=== PATIENT | female | born 1965 | race Caucasian/White ===

== ENCOUNTER 2022-04-29 10:07 | Emergency (ER) | payer MEDICAID, OTHER ==
[2022-04-29] MEDS ORDERED: HYDROmorphone 1 MG/ML Syringe IM ONE (10:39)
== END 2022-04-29 12:22 | disposition home or self-care (01) ==
LOC: JD.ED 10:07
DX: S22.080A Wedge compression fracture of T11-T12 vertebra, initial encounter for closed fracture (principal); S32.010A Wedge compression fracture of first lumbar vertebra, initial encounter for closed fracture; F17.210 Nicotine dependence, cigarettes, uncomplicated; Z79.899 Other long term (current) drug therapy; W23.1XXA Caught, crushed, jammed, or pinched between stationary objects, initial encounter
CPT/HCPCS: 72100; 96372; 99283; J1170

== ENCOUNTER 2022-07-26 07:42 | Inpatient (IN) | payer MEDICAID ==
[2022-07-26] MEDS ORDERED: Sodium Chloride 0.9% 10 ML Syringe FLUSH PRN (08:02)
[2022-07-26] MEDS ORDERED: Albuterol/Ipratropium 3.0-0.5 MG/3 ML Neb Soln NEB ONE (08:03)
[2022-07-26] MEDS ORDERED: methylPREDNISolone Sodium Succinate 125 MG/2 ML SDV IVPUSH ONE (08:12)
[2022-07-26] MEDS ORDERED: Sodium Chloride 0.9% 1,000 ML IV SCH (08:15)
[2022-07-26] MEDS ORDERED: Acetaminophen 325 MG Tab PO ONE (08:17)
[2022-07-26 08:46] LABS: CORONAVIRUS COVID-19 NAA NEGATIVE (NEGATIVE)
[2022-07-26] MEDS ORDERED: Meropenem 1 GM in Sodium Chloride 0.9% 100 ML IV ONE (09:26)
[2022-07-26] MEDS ORDERED: Lactated Ringers 1,000 ML IV ONE (09:27)
[2022-07-26] MEDS ORDERED: HYDROmorphone 0.5 MG/0.5 ML Syringe IVPUSH ONE (09:41)
[2022-07-26] MEDS ORDERED: Sodium Chloride 0.9% 100 ML ONE (10:03)
[2022-07-26] MEDS ORDERED: Meropenem 1 GM SDV ONE (10:03)
[2022-07-26] MEDS ORDERED: Albuterol 6.7 GM Inhaler INH PRN (11:44)
[2022-07-26] MEDS ORDERED: Polyethylene Glycol 3350 Powder 17 GM Packet PO PRN (11:44)
[2022-07-26] MEDS ORDERED: Ondansetron 4 MG/2 ML SDV IV PRN (12:25)
[2022-07-26] MEDS ORDERED: Acetaminophen 325 MG Tab PO PRN (12:25)
[2022-07-26] MEDS: Nicotine 14 MG/24 Hr Patch TRDERM SCH (13:18)
[2022-07-26] MEDS: Cyclobenzaprine 10 MG Tab PO PRN ×2 (13:18→20:23)
[2022-07-26] MEDS ORDERED: Albuterol 0.083% 2.5 MG/3 ML Neb Soln NEB PRN (14:55)
[2022-07-26] MEDS: Ascorbic Acid 500 MG Tab PO SCH (15:05)
[2022-07-26] MEDS: Acetaminophen/oxyCODONE 325-5 MG Tab PO PRN ×2 (15:06→21:07)
[2022-07-26] MEDS: Gabapentin 300 MG Cap PO SCH ×2 (15:08→20:25)
[2022-07-26] MEDS: Albuterol/Ipratropium 3.0-0.5 MG/3 ML Neb Soln NEB SCH ×2 (15:25→20:35)
[2022-07-26] MEDS ORDERED: Magnesium Sulfate/Water 4 GM in Premix Bag 1 BAG IV ONE (16:12)
[2022-07-26] MEDS ORDERED: Meropenem 1 GM in Sodium Chloride 0.9% 100 ML IV SCH (18:00)
[2022-07-26] MEDS: Meropenem 500 MG in Sodium Chloride 0.9% 100 ML IV SCH ×2 (18:31→23:59)
[2022-07-26] MEDS: methylPREDNISolone Sodium Succinate 40 MG/1 ML SDV IVPUSH SCH (20:23)
[2022-07-26] MEDS: Mirtazapine 30 MG Tab PO SCH (20:24)
[2022-07-26] MEDS: Zolpidem 10 MG Tab PO SCH (20:24)
[2022-07-26] MEDS: Formoterol/Mometasone 200-5 MCG 8.8 GM Inhaler IH SCH (20:38)
[2022-07-26] MEDS: Mineral Oil/Petrolatum Ophth Oint 3.5 GM Tube EYEBOTH SCH (20:53)
[2022-07-27] MEDS: Acetaminophen/oxyCODONE 325-5 MG Tab PO PRN ×2 (03:40→10:05)
[2022-07-27] MEDS: Meropenem 500 MG in Sodium Chloride 0.9% 100 ML IV SCH ×4 (05:33→23:41)
[2022-07-27] MEDS: Levothyroxine 50 MCG Tab PO SCH (05:34)
[2022-07-27] MEDS: Albuterol/Ipratropium 3.0-0.5 MG/3 ML Neb Soln NEB SCH ×4 (06:18→20:18)
[2022-07-27] MEDS ORDERED: CALCITONIN SALMON NAS SCH (09:00)
[2022-07-27] MEDS: Citalopram 20 MG Tab PO SCH (09:01)
[2022-07-27] MEDS: Magnesium Oxide 400 MG Tab PO SCH (09:02)
[2022-07-27] MEDS: Gabapentin 300 MG Cap PO SCH ×3 (09:02→21:04)
[2022-07-27] MEDS: Cetirizine 10 MG Tab PO SCH (09:03)
[2022-07-27] MEDS: Cholecalciferol (Vitamin D3) 25 MCG Tab PO SCH (09:03)
[2022-07-27] MEDS: Pantoprazole 40 MG Tab.CR PO SCH (09:03)
[2022-07-27] MEDS: methylPREDNISolone Sodium Succinate 40 MG/1 ML SDV IVPUSH SCH ×2 (09:04→21:04)
[2022-07-27] MEDS: Nicotine 14 MG/24 Hr Patch TRDERM SCH (09:04)
[2022-07-27] MEDS: Enoxaparin 40 MG/0.4 ML Syringe SUBCUT SCH (09:05)
[2022-07-27] MEDS: Formoterol/Mometasone 200-5 MCG 8.8 GM Inhaler IH SCH ×2 (09:16→21:28)
[2022-07-27] MEDS ORDERED: oxyCODONE 5 MG Tab PO PRN (15:44)
[2022-07-27] MEDS: Ascorbic Acid 500 MG Tab PO SCH (16:12)
[2022-07-27] MEDS ORDERED: oxyCODONE 5 MG Tab PO ONE (17:21)
[2022-07-27] MEDS: Zolpidem 10 MG Tab PO SCH (21:04)
[2022-07-27] MEDS: Mirtazapine 30 MG Tab PO SCH (21:04)
[2022-07-27] MEDS: Cyclobenzaprine 10 MG Tab PO PRN (21:04)
[2022-07-27] MEDS: Mineral Oil/Petrolatum Ophth Oint 3.5 GM Tube EYEBOTH SCH (21:23)
[2022-07-27] MEDS: oxyCODONE 5 MG Tab PO PRN (23:43)
[2022-07-28] MEDS: Albuterol/Ipratropium 3.0-0.5 MG/3 ML Neb Soln NEB SCH ×2 (06:13→09:10)
[2022-07-28] MEDS: Meropenem 500 MG in Sodium Chloride 0.9% 100 ML IV SCH ×2 (06:18→11:39)
[2022-07-28] MEDS: Levothyroxine 50 MCG Tab PO SCH (06:19)
[2022-07-28] MEDS: oxyCODONE 5 MG Tab PO PRN ×2 (06:19→12:40)
[2022-07-28] MEDS ORDERED: predniSONE 20 MG Tab PO SCH (08:30)
[2022-07-28] MEDS: Citalopram 20 MG Tab PO SCH (08:46)
[2022-07-28] MEDS: Magnesium Oxide 400 MG Tab PO SCH (08:47)
[2022-07-28] MEDS: Gabapentin 300 MG Cap PO SCH (08:47)
[2022-07-28] MEDS: Pantoprazole 40 MG Tab.CR PO SCH (08:47)
[2022-07-28] MEDS: Cholecalciferol (Vitamin D3) 25 MCG Tab PO SCH (08:48)
[2022-07-28] MEDS: Cetirizine 10 MG Tab PO SCH (08:48)
[2022-07-28] MEDS: Nicotine 14 MG/24 Hr Patch TRDERM SCH (08:48)
[2022-07-28] MEDS: Enoxaparin 40 MG/0.4 ML Syringe SUBCUT SCH (08:49)
[2022-07-28] MEDS: Formoterol/Mometasone 200-5 MCG 8.8 GM Inhaler IH SCH (09:10)
[2022-07-28] MEDS ORDERED: Furosemide 20 MG Tab PO ONE ×2 (09:21→11:15)
== END 2022-07-28 13:21 | disposition other institution (70) | DRG 871 ==
LOC: JD.ED 07:42 → JD.MS 11:40
PROVIDERS: ADMIT Internal Medicine; ATTEND Internal Medicine
DX: A41.9 Sepsis, unspecified organism (principal); J18.9 Pneumonia, unspecified organism; J96.01 Acute respiratory failure with hypoxia; J44.0 Chronic obstructive pulmonary disease with (acute) lower respiratory infection; R09.02 Hypoxemia; J44.1 Chronic obstructive pulmonary disease with (acute) exacerbation; R65.20 Severe sepsis without septic shock; F90.9 Attention-deficit hyperactivity disorder, unspecified type; F41.9 Anxiety disorder, unspecified; F32.A Depression, unspecified; Z20.822 Contact with and (suspected) exposure to COVID-19; E03.9 Hypothyroidism, unspecified; M54.9 Dorsalgia, unspecified; Z66 Do not resuscitate; F17.210 Nicotine dependence, cigarettes, uncomplicated; G89.29 Other chronic pain; G62.9 Polyneuropathy, unspecified; E83.42 Hypomagnesemia; Z87.81 Personal history of (healed) traumatic fracture; Z86.59 Personal history of other mental and behavioral disorders; Z79.52 Long term (current) use of systemic steroids; Z87.01 Personal history of pneumonia (recurrent); Z79.1 Long term (current) use of non-steroidal anti-inflammatories (NSAID); Z90.710 Acquired absence of both cervix and uterus; Z98.42 Cataract extraction status, left eye; Z98.41 Cataract extraction status, right eye; Z98.890 Other specified postprocedural states; F12.90 Cannabis use, unspecified, uncomplicated; Z79.899 Other long term (current) drug therapy
CPT/HCPCS: 0241U; 36415; 36600; 71045; 80048; 80053; 81003; 82803; 83605; 83735; 83880; 84145; 85025; 85610; 86140; 86738; 87040; 87641; 87899; 93005; 94640; 94667; 94668; 94760; 94761; 96361; 96365; 96375; 97162; 99285; A9270-GY; J1170; J1650; J2185; J2920; J2930; J3475; J3490; J7030; J7120; J7512; J7620-GY

== ENCOUNTER 2022-08-24 20:32 | Emergency (ER) | payer MEDICAID ==
[2022-08-24] MEDS ORDERED: LORazepam 2 MG/ML SDV IVPUSH ONE (21:15)
[2022-08-24] MEDS ORDERED: Metoclopramide 10 MG/2 ML SDV IVPUSH ONE (22:04)
[2022-08-24] MEDS ORDERED: Ondansetron 4 MG/2 ML SDV IVPUSH ONE (22:44)
== END 2022-08-25 00:10 | disposition home or self-care (01) ==
LOC: JD.ED 20:32
DX: S42.032A Displaced fracture of lateral end of left clavicle, initial encounter for closed fracture (principal); J44.9 Chronic obstructive pulmonary disease, unspecified; E03.9 Hypothyroidism, unspecified; Z88.5 Allergy status to narcotic agent; Z79.899 Other long term (current) drug therapy; W06.XXXA Fall from bed, initial encounter
CPT/HCPCS: 71101; 96374; 96375; 99285; J2060; J2405; J2765; 99283

== ENCOUNTER 2023-01-02 08:17 | Day surgery (SDC) | payer MEDICAID ==
[~2023-01-02 08:17] MED LIST: Lactated Ringers 1,000 ML IV SCH; Sodium Chloride 0.9% 10 ML Syringe FLUSH PRN; Sodium Chloride 0.9% 10 ML Syringe FLUSH SCH
[2023-01-02] MEDS ORDERED: Propofol 200 MG/20 ML SDV ONE (08:33)
[2023-01-02] MEDS ORDERED: Midazolam 1 MG/ML 2 ML SDV ONE ×2 (08:33→09:43)
[2023-01-02] MEDS ORDERED: Ketamine 500 mg/10 ML MDV ONE (08:33)
[2023-01-02] MEDS ORDERED: Ondansetron 4 MG/2 ML SDV IVPUSH PRN (08:48)
[2023-01-02] MEDS ORDERED: Lidocaine 1% 2 ML ONE (08:57)
[2023-01-02 09:01] LABS: A/G RATIO 1.1 (1-2); ALBUMIN 4.2 g/dl (3.4-5.0); ANION GAP 8.5 (5-15); BILIRUBIN TOTAL 0.6 mg/dL (0.2-1.0); BUN/CREATININE RATIO 7.1 (14-18); CALCIUM 9.4 mg/dL (8.5-10.1); CREATININE 0.7 mg/dL (0.55-1.02); EST CRCL DRUG DOSING (CG) 71.82 mL/min; POTASSIUM,K 4.5 mEq/L (3.5-5.1); PROTEIN TOTAL,TP 8.2 g/dl (6.4-8.2)
== END 2023-01-02 11:20 | disposition home or self-care (01) ==
LOC: JD.SDS 08:17
PROVIDERS: ATTEND Specialist
DX: Z12.11 Encounter for screening for malignant neoplasm of colon (principal); K21.00 Gastro-esophageal reflux disease with esophagitis, without bleeding; J44.9 Chronic obstructive pulmonary disease, unspecified; F32.A Depression, unspecified; M19.90 Unspecified osteoarthritis, unspecified site; E78.00 Pure hypercholesterolemia, unspecified; E03.9 Hypothyroidism, unspecified; M81.0 Age-related osteoporosis without current pathological fracture; F90.9 Attention-deficit hyperactivity disorder, unspecified type; F41.0 Panic disorder [episodic paroxysmal anxiety]; G62.9 Polyneuropathy, unspecified; F17.210 Nicotine dependence, cigarettes, uncomplicated; Z86.010 Personal history of colon polyps; Z79.890 Hormone replacement therapy; Z79.899 Other long term (current) drug therapy; Z90.710 Acquired absence of both cervix and uterus; Z88.5 Allergy status to narcotic agent; Z53.09 Procedure and treatment not carried out because of other contraindication
CPT/HCPCS: 36415; 43235; 45378; 80053; J2250; J2704; J3490; J7120

== ENCOUNTER 2023-12-14 21:39 | Emergency (ER) | payer MEDICAID ==
[2023-12-14 23:20] LABS: BASOPHILS PERCENT AUTO 0.2 % (0.0-1.0); EOSINOPHILS ABSOLUTE AUTO 0.1 K/mm3 (0.0-0.4); EOSINOPHILS PERCENT AUTO 1.4 % (0.0-6.0); HEMATOCRIT 37.3 % (37.0-47.0); HEMOGLOBIN 13.2 gm/dl (12.0-16.0); IMMATURE GRAN ABSOLUTE AUTO 0.02 K/mm3 (0.00-0.05); IMMATURE GRAN PERCENT AUTO 0.3 % (0.0-0.4); LYMPHOCYTES ABSOLUTE AUTO 2.1 K/mm3 (1.0-4.8); LYMPHOCYTES PERCENT AUTO 32.7 % (24.0-44.0); MEAN CORPUSCULAR HEMOGLOBIN 31.7 pg (28.0-32.0); MEAN CORPUSCULAR HGB CONC 35.4 g/dl (32.0-36.0); MEAN CORPUSCULAR VOLUME 89.4 fl (83.0-99.0); MONOCYTES ABSOLUTE AUTO 0.4 K/mm3 (0.0-0.8); MONOCYTES PERCENT AUTO 5.7 % (0.0-8.0); NEUTROPHILS ABSOLUTE AUTO 3.9 K/mm3 (1.8-7.7); NEUTROPHILS PERCENT AUTO 59.7 % (41.0-71.0); PLATELET COUNT,PLT 186 K/mm3 (150-400); RED BLOOD CELL COUNT 4.17 M/mm3 (4.10-5.30); WHITE BLOOD CELL COUNT,WBC 6.52 K/mm3 (3.9-11.3)
[2023-12-14 23:42] LABS: ALBUMIN 3.6 g/dl (3.4-5.0); ANION GAP 5.8 (5-15); BILIRUBIN TOTAL 0.4 mg/dL (0.2-1.0); BUN/CREATININE RATIO 6.7 (14-18); CALCIUM 8.8 mg/dL (8.5-10.1); CREATININE 0.9 mg/dL (0.55-1.02); EST CRCL DRUG DOSING (CG) 52.67 mL/min; ETHANOL BLOOD MEDICAL 0.1 gm% (0.00); MAGNESIUM 1.7 mg/dL (1.8-2.4); POTASSIUM,K 3.8 mEq/L (3.5-5.1); PROTEIN TOTAL,TP 7.1 g/dl (6.4-8.2)
[2023-12-15] MEDS: Ketorolac 60 MG/2 ML SDV IM ONE (00:21)
== END 2023-12-15 00:46 | disposition home or self-care (01) ==
LOC: JD.ED 21:39
DX: S22.42XA Multiple fractures of ribs, left side, initial encounter for closed fracture (principal); G89.4 Chronic pain syndrome; J44.9 Chronic obstructive pulmonary disease, unspecified; F10.90 Alcohol use, unspecified, uncomplicated; I10 Essential (primary) hypertension; E78.00 Pure hypercholesterolemia, unspecified; K21.9 Gastro-esophageal reflux disease without esophagitis; E03.9 Hypothyroidism, unspecified; Z90.710 Acquired absence of both cervix and uterus; Z79.890 Hormone replacement therapy; Z79.82 Long term (current) use of aspirin; Z79.899 Other long term (current) drug therapy; Z79.1 Long term (current) use of non-steroidal anti-inflammatories (NSAID); Z88.5 Allergy status to narcotic agent; W01.0XXA Fall on same level from slipping, tripping and stumbling without subsequent striking against object, initial encounter
CPT/HCPCS: 36415; 71250; 73502; 80053; 80307; 83735; 85025; 96372; 99284; J1885

== ENCOUNTER 2024-05-20 16:58 | Emergency (ER) | payer MEDICAID ==
[2024-05-20] MEDS: LORazepam 1 MG Tab PO ONE (18:09)
[2024-05-20 18:29] LABS: BASOPHILS ABSOLUTE AUTO 0.1 K/mm3 (0.0-0.2); EOSINOPHILS PERCENT AUTO 0.2 % (0.0-6.0); HEMATOCRIT 49.9 % (37.0-47.0); HEMOGLOBIN 17.6 gm/dl (12.0-16.0); IMMATURE GRAN ABSOLUTE AUTO 0.01 K/mm3 (0.00-0.05); IMMATURE GRAN PERCENT AUTO 0.2 % (0.0-0.4); LYMPHOCYTES ABSOLUTE AUTO 0.9 K/mm3 (1.0-4.8); LYMPHOCYTES PERCENT AUTO 17.1 % (24.0-44.0); MEAN CORPUSCULAR HEMOGLOBIN 31.7 pg (28.0-32.0); MEAN CORPUSCULAR HGB CONC 35.3 g/dl (32.0-36.0); MEAN CORPUSCULAR VOLUME 89.7 fl (83.0-99.0); MEAN PLATELET VOLUME 9.5 fl (9.4-12.3); MONOCYTES ABSOLUTE AUTO 0.4 K/mm3 (0.0-0.8); MONOCYTES PERCENT AUTO 7.8 % (0.0-8.0); NEUTROPHILS ABSOLUTE AUTO 3.7 K/mm3 (1.8-7.7); NEUTROPHILS PERCENT AUTO 73.7 % (41.0-71.0); PLATELET COUNT,PLT 216 K/mm3 (150-400); RED BLOOD CELL COUNT 5.56 M/mm3 (4.10-5.30); WHITE BLOOD CELL COUNT,WBC 4.97 K/mm3 (3.9-11.3)
[2024-05-20] MEDS: LORazepam 2 MG/ML SDV IVPUSH ONE ×3 (18:40→18:53)
[2024-05-20] MEDS: Dextrose 5%-Lactated Ringers 1,000 ML IV SCH (18:47)
[2024-05-20 19:02] LABS: LACTIC ACID 5.4 mmol/L (0.4-2.0)
[2024-05-20 19:07] LABS: A/G RATIO 0.8 (1-2); ALBUMIN 3.7 g/dl (3.4-5.0); ANION GAP 18.8 (5-15); BILIRUBIN TOTAL 0.6 mg/dL (0.2-1.0); BUN/CREATININE RATIO 1.3 (14-18); C-REACTIVE PROTEIN 0.07 mg/dL (<0.30); CALCIUM 9.4 mg/dL (8.5-10.1); CREATININE 0.8 mg/dL (0.55-1.02); EST CRCL DRUG DOSING (CG) 58.55 mL/min; MAGNESIUM 1.4 mg/dL (1.8-2.4); POTASSIUM,K 3.8 mEq/L (3.5-5.1); PROTEIN TOTAL,TP 8.3 g/dl (6.4-8.2); TSH 0.759 uIU/mL (0.358-3.74)
[2024-05-20] MEDS: hydrALAZINE 20 MG/ML SDV IVPUSH ONE (19:09)
[2024-05-20] MEDS: amLODIPine 10 MG Tab PO ONE (19:10)
[2024-05-20] MEDS: Zolpidem 10 MG Tab PO SCH (20:03)
== END 2024-05-20 20:18 | disposition home or self-care (01) ==
LOC: JD.ED 16:58
DX: J44.9 Chronic obstructive pulmonary disease, unspecified (principal); E03.9 Hypothyroidism, unspecified; M17.0 Bilateral primary osteoarthritis of knee; I10 Essential (primary) hypertension; K21.9 Gastro-esophageal reflux disease without esophagitis; E78.00 Pure hypercholesterolemia, unspecified; G47.00 Insomnia, unspecified; G62.9 Polyneuropathy, unspecified; M79.7 Fibromyalgia; F17.210 Nicotine dependence, cigarettes, uncomplicated; Z90.710 Acquired absence of both cervix and uterus; Z79.899 Other long term (current) drug therapy; Z79.82 Long term (current) use of aspirin; Z79.890 Hormone replacement therapy; Z79.1 Long term (current) use of non-steroidal anti-inflammatories (NSAID); Z79.51 Long term (current) use of inhaled steroids; Z88.5 Allergy status to narcotic agent
CPT/HCPCS: 36415; 80053; 83605; 83735; 84443; 84484; 85025; 86140; 93005; 96361; 96374; 96375; 99285; A9270; J0360; J2060; J7121; 93010; 99284

== ENCOUNTER 2024-05-27 17:22 | Inpatient (IN) | payer MEDICAID ==
[2024-05-27] MEDS ORDERED: Sodium Chloride 0.9% 10 ML Syringe FLUSH PRN (18:11)
[2024-05-27 18:38] LABS: BASOPHILS PERCENT AUTO 0.3 % (0.0-1.0); EOSINOPHILS PERCENT AUTO 0.3 % (0.0-6.0); HEMATOCRIT 42.5 % (37.0-47.0); HEMOGLOBIN 14.6 gm/dl (12.0-16.0); IMMATURE GRAN ABSOLUTE AUTO 0.06 K/mm3 (0.00-0.05); IMMATURE GRAN PERCENT AUTO 0.7 % (0.0-0.4); LYMPHOCYTES ABSOLUTE AUTO 1.4 K/mm3 (1.0-4.8); MEAN CORPUSCULAR HEMOGLOBIN 32.2 pg (28.0-32.0); MEAN CORPUSCULAR HGB CONC 34.4 g/dl (32.0-36.0); MEAN CORPUSCULAR VOLUME 93.8 fl (83.0-99.0); MEAN PLATELET VOLUME 10.8 fl (9.4-12.3); MONOCYTES ABSOLUTE AUTO 0.4 K/mm3 (0.0-0.8); MONOCYTES PERCENT AUTO 5.1 % (0.0-8.0); NEUTROPHILS ABSOLUTE AUTO 6.7 K/mm3 (1.8-7.7); NEUTROPHILS PERCENT AUTO 77.6 % (41.0-71.0); PLATELET COUNT,PLT 124 K/mm3 (150-400); RED BLOOD CELL COUNT 4.53 M/mm3 (4.10-5.30)
[2024-05-27 19:45] LABS: A/G RATIO 0.9 (1-2); ALBUMIN 3.2 g/dl (3.4-5.0); ANION GAP 8.6 (5-15); BILIRUBIN TOTAL 0.5 mg/dL (0.2-1.0); BUN/CREATININE RATIO 9.2 (14-18); CALCIUM 8.8 mg/dL (8.5-10.1); CREATININE 2.5 mg/dL (0.55-1.02); EST CRCL DRUG DOSING (CG) 19.64 mL/min; MAGNESIUM 2.1 mg/dL (1.8-2.4); POTASSIUM,K 5.6 mEq/L (3.5-5.1); PROTEIN TOTAL,TP 6.8 g/dl (6.4-8.2)
[2024-05-27] MEDS: Sodium Chloride 0.9% 1,000 ML IV ONE (21:17)
[2024-05-27 21:20] LABS: APPEARANCE,URINE CLEAR (Clear); BILIRUBIN,URINE NEGATIVE (Negative); COLOR,URINE YELLOW (Yellow); GLUCOSE,URINE NEGATIVE (Negative); KETONES,URINE NEGATIVE (Negative); LEUKOCYTE ESTERASE,URINE NEGATIVE (Negative); NITRITE,URINE NEGATIVE (Negative); OCCULT BLOOD,URINE NEGATIVE (Negative); PH,URINE 6.5 (5.0-8.0); PROTEIN,URINE 1+ (Negative); UROBILINOGEN,URINE 0.2 (0.2-1.0)
[2024-05-27 21:27] LABS: BARBITURATE SCREEN,URINE NEGATIVE (CUTOFF=200); BENZODIAZEPINES SCREEN,URINE NEGATIVE (CUTOFF=150); BUPRENORPHINE SCREEN,URINE NEGATIVE (CUTOFF=10); METHADONE SCREEN, URINE NEGATIVE (CUTOFF=200); METHAMPHETAMINES SCREEN, URINE NEGATIVE (CUTOFF=500); OXYCODONE SCREEN,URINE NEGATIVE (CUT0FF=100); THC SCREEN,URINE 20 NG/ML NEGATIVE (CUTOFF=50)
[2024-05-27 21:32] LABS: AMPHETAMINES SCREEN, URINE NEGATIVE (CUTOFF=500)
[2024-05-27 21:45] LABS: BACTERIA,URINE FEW /hpf (FEW); RBC,URINE 0-5 /hpf (0-5); WBC,URINE 0-5 /hpf (0-5)
[2024-05-27 21:46] LABS: MUCUS,URINE FEW /hpf (FEW)
[2024-05-27] MEDS ORDERED: Ondansetron 4 MG/2 ML SDV IVPUSH PRN (22:26)
[2024-05-27] MEDS ORDERED: Acetaminophen 325 MG Tab PO PRN (22:27)
[2024-05-28 04:31] LABS: BASOPHILS PERCENT AUTO 0.4 % (0.0-1.0); EOSINOPHILS PERCENT AUTO 0.6 % (0.0-6.0); HEMATOCRIT 39.4 % (37.0-47.0); HEMOGLOBIN 13.6 gm/dl (12.0-16.0); IMMATURE GRAN ABSOLUTE AUTO 0.02 K/mm3 (0.00-0.05); IMMATURE GRAN PERCENT AUTO 0.4 % (0.0-0.4); LYMPHOCYTES ABSOLUTE AUTO 1.8 K/mm3 (1.0-4.8); LYMPHOCYTES PERCENT AUTO 32.5 % (24.0-44.0); MEAN CORPUSCULAR HGB CONC 34.5 g/dl (32.0-36.0); MEAN CORPUSCULAR VOLUME 92.7 fl (83.0-99.0); MEAN PLATELET VOLUME 10.4 fl (9.4-12.3); MONOCYTES ABSOLUTE AUTO 0.5 K/mm3 (0.0-0.8); MONOCYTES PERCENT AUTO 8.7 % (0.0-8.0); NEUTROPHILS ABSOLUTE AUTO 3.1 K/mm3 (1.8-7.7); NEUTROPHILS PERCENT AUTO 57.4 % (41.0-71.0); PLATELET COUNT,PLT 120 K/mm3 (150-400); RED BLOOD CELL COUNT 4.25 M/mm3 (4.10-5.30); WHITE BLOOD CELL COUNT,WBC 5.42 K/mm3 (3.9-11.3)
[2024-05-28 05:09] LABS: A/G RATIO 0.9 (1-2); ALBUMIN 2.9 g/dl (3.4-5.0); ANION GAP 10.8 (5-15); BILIRUBIN TOTAL 0.6 mg/dL (0.2-1.0); CALCIUM 8.4 mg/dL (8.5-10.1); EST CRCL DRUG DOSING (CG) 24.55 mL/min; MAGNESIUM 2.1 mg/dL (1.8-2.4); PHOSPHORUS 4.2 mg/dL (2.6-4.7); PROTEIN TOTAL,TP 6.3 g/dl (6.4-8.2)
[2024-05-28 05:25] LABS: POTASSIUM,K 5.8 mEq/L (3.5-5.1)
[2024-05-28] MEDS ORDERED: Docusate Sodium 100 MG Cap PO PRN (08:09)
[2024-05-28] MEDS ORDERED: Albuterol 0.083% 2.5 MG/3 ML Neb Soln NEB PRN (08:09)
[2024-05-28] MEDS ORDERED: Albuterol/Ipratropium 3.0-0.5 MG/3 ML Neb Soln NEB PRN (08:09)
[2024-05-28] MEDS ORDERED: Enoxaparin 30 MG/0.3 ML Syringe SUBCUT SCH (09:00)
[2024-05-28] MEDS ORDERED: Propranolol 60 MG Cap.ER PO SCH (09:00)
[2024-05-28] MEDS ORDERED: Non-Formulary Medication 1 Each (Fluticasone/Umeclidin/Vilanter [Trelegy Ellipta 200-62.5- INH SCH (09:00)
[2024-05-28] MEDS ORDERED: Polyethylene Glycol 3350 Powder 17 GM Packet PO SCH (09:00)
[2024-05-28] MEDS ORDERED: Non-Formulary Medication 1 Each (Umeclidinium Bromide 62.5 MCG Blst.W.Dev) INH SCH (09:00)
[2024-05-28] MEDS: atorvaSTATin 20 MG Tab PO SCH (09:18)
[2024-05-28] MEDS: Magnesium Oxide 400 MG Tab PO SCH (09:18)
[2024-05-28] MEDS: 50% Dextrose in Water 50 ML Syringe IVPUSH ONE (09:18)
[2024-05-28] MEDS: Heparin Sodium 5,000 Units/ML Vial SUBCUT SCH (09:18)
[2024-05-28] MEDS: Pantoprazole 40 MG Tab.CR PO SCH (09:18)
[2024-05-28] MEDS: DULoxetine 30 MG Cap PO SCH (09:18)
[2024-05-28] MEDS: Insulin Regular, Human 100 Units/ML 10 ML Vial IV ONE (09:20)
[2024-05-28] MEDS: Sodium Chloride 0.9% 1,000 ML IV SCH (11:29)
[2024-05-28 12:15] LABS: SALICYLATE 4.2 mg/dL (2.8-20.0)
[2024-05-28 12:25] LABS: TSH 2.135 uIU/mL (0.358-3.74)
[2024-05-28] MEDS: Tiotropium BR/Olodaterol HCL 4 GM Inhalation Spray 2.5mcg/1 dose; 10 doses INH SCH (13:11)
[2024-05-28 13:17] LABS: FOLIC ACID 5.6 ng/mL (8.6-58.9)
[2024-05-28] MEDS: Folic Acid 1 MG Tab PO ONE (14:09)
[2024-05-28 15:57] LABS: ANION GAP 8.1 (5-15); BUN/CREATININE RATIO 13.3 (14-18); CREATININE 1.8 mg/dL (0.55-1.02); EST CRCL DRUG DOSING (CG) 27.27 mL/min
[2024-05-28 16:01] LABS: POTASSIUM,K 5.1 mEq/L (3.5-5.1)
[2024-05-28] MEDS ORDERED: Gabapentin 600 MG Tab PO SCH (18:00)
[2024-05-28] MEDS: Famotidine 20 MG Tab PO SCH (20:12)
[2024-05-28] MEDS ORDERED: Gabapentin 300 MG Cap PO SCH (21:00)
[2024-05-28] MEDS ORDERED: Formoterol/Mometasone 100-5 MCG 8.8 GM Inhaler INH SCH (21:00)
[2024-05-29] MEDS: Sodium Chloride 0.9% 1,000 ML IV SCH (00:17)
[2024-05-29 04:34] LABS: BASOPHILS PERCENT AUTO 0.6 % (0.0-1.0); EOSINOPHILS ABSOLUTE AUTO 0.1 K/mm3 (0.0-0.4); HEMATOCRIT 37.5 % (37.0-47.0); HEMOGLOBIN 12.8 gm/dl (12.0-16.0); IMMATURE GRAN ABSOLUTE AUTO 0.01 K/mm3 (0.00-0.05); IMMATURE GRAN PERCENT AUTO 0.2 % (0.0-0.4); LYMPHOCYTES ABSOLUTE AUTO 1.6 K/mm3 (1.0-4.8); LYMPHOCYTES PERCENT AUTO 30.6 % (24.0-44.0); MEAN CORPUSCULAR HEMOGLOBIN 32.1 pg (28.0-32.0); MEAN CORPUSCULAR HGB CONC 34.1 g/dl (32.0-36.0); MEAN PLATELET VOLUME 10.4 fl (9.4-12.3); MONOCYTES ABSOLUTE AUTO 0.4 K/mm3 (0.0-0.8); MONOCYTES PERCENT AUTO 7.6 % (0.0-8.0); NEUTROPHILS ABSOLUTE AUTO 3.1 K/mm3 (1.8-7.7); PLATELET COUNT,PLT 118 K/mm3 (150-400); RED BLOOD CELL COUNT 3.99 M/mm3 (4.10-5.30); WHITE BLOOD CELL COUNT,WBC 5.16 K/mm3 (3.9-11.3)
[2024-05-29 04:53] LABS: ANION GAP 8.1 (5-15); BUN/CREATININE RATIO 14.6 (14-18); CALCIUM 8.5 mg/dL (8.5-10.1); CREATININE 1.3 mg/dL (0.55-1.02); EST CRCL DRUG DOSING (CG) 37.76 mL/min; MAGNESIUM 1.7 mg/dL (1.8-2.4); POTASSIUM,K 5.1 mEq/L (3.5-5.1)
[2024-05-29] MEDS: Levothyroxine 75 MCG Tab PO SCH (06:49)
[2024-05-29] MEDS: Magnesium Sulfate/Water Premix 2 GM in Premix Bag 1 BAG IV ONE (08:16)
[2024-05-29] MEDS: Folic Acid 1 MG Tab PO SCH (08:16)
[2024-05-29 11:17] LABS: BASE EXCESS ARTERIAL 4.1 (-2-2.0); BICARBONATE,ARTERIAL 32.1 meq/L (22.0-26.0); O2 SATURATION ARTERIAL 97.3 % (96.0-97.0)
[2024-05-30 04:49] LABS: BASOPHILS PERCENT AUTO 0.4 % (0.0-1.0); EOSINOPHILS PERCENT AUTO 0.6 % (0.0-6.0); HEMOGLOBIN 13.4 gm/dl (12.0-16.0); IMMATURE GRAN ABSOLUTE AUTO 0.02 K/mm3 (0.00-0.05); IMMATURE GRAN PERCENT AUTO 0.4 % (0.0-0.4); LYMPHOCYTES ABSOLUTE AUTO 1.3 K/mm3 (1.0-4.8); LYMPHOCYTES PERCENT AUTO 24.7 % (24.0-44.0); MEAN CORPUSCULAR HEMOGLOBIN 31.8 pg (28.0-32.0); MEAN CORPUSCULAR HGB CONC 34.4 g/dl (32.0-36.0); MEAN CORPUSCULAR VOLUME 92.6 fl (83.0-99.0); MEAN PLATELET VOLUME 9.8 fl (9.4-12.3); MONOCYTES ABSOLUTE AUTO 0.4 K/mm3 (0.0-0.8); MONOCYTES PERCENT AUTO 7.3 % (0.0-8.0); NEUTROPHILS ABSOLUTE AUTO 3.5 K/mm3 (1.8-7.7); NEUTROPHILS PERCENT AUTO 66.6 % (41.0-71.0); PLATELET COUNT,PLT 136 K/mm3 (150-400); RED BLOOD CELL COUNT 4.21 M/mm3 (4.10-5.30); WHITE BLOOD CELL COUNT,WBC 5.31 K/mm3 (3.9-11.3)
[2024-05-30 05:14] LABS: ANION GAP 7.9 (5-15); BUN/CREATININE RATIO 13.6 (14-18); CALCIUM 8.8 mg/dL (8.5-10.1); CREATININE 1.1 mg/dL (0.55-1.02); EST CRCL DRUG DOSING (CG) 44.63 mL/min; MAGNESIUM 1.9 mg/dL (1.8-2.4); POTASSIUM,K 4.9 mEq/L (3.5-5.1)
[2024-05-30] MEDS: Carboxymethylcellulose Sodium 1% Ophth Gel 15 ML Bottle EYEBOTH PRN (13:28)
[2024-05-31 19:42] LABS: VITAMIN B1, WHOLE BLOOD 101 nmol/L (70-180)
== END 2024-05-30 15:00 | disposition home or self-care (01) | DRG 918 ==
LOC: JD.ED 17:22 → JD.MS 22:14
PROVIDERS: ADMIT Student in an Organized Health Care Education/Training Program; ATTEND Student in an Organized Health Care Education/Training Program
DX: T50.901A Poisoning by unspecified drugs, medicaments and biological substances, accidental (unintentional), initial encounter (principal); E87.1 Hypo-osmolality and hyponatremia; N17.9 Acute kidney failure, unspecified; E78.00 Pure hypercholesterolemia, unspecified; I10 Essential (primary) hypertension; K21.9 Gastro-esophageal reflux disease without esophagitis; G62.9 Polyneuropathy, unspecified; F41.9 Anxiety disorder, unspecified; F32.A Depression, unspecified; F90.9 Attention-deficit hyperactivity disorder, unspecified type; F17.210 Nicotine dependence, cigarettes, uncomplicated; E87.5 Hyperkalemia; J44.9 Chronic obstructive pulmonary disease, unspecified; Z79.890 Hormone replacement therapy; Z88.5 Allergy status to narcotic agent; E03.9 Hypothyroidism, unspecified; M79.7 Fibromyalgia; R06.89 Other abnormalities of breathing; E53.8 Deficiency of other specified B group vitamins; Z66 Do not resuscitate; Z79.02 Long term (current) use of antithrombotics/antiplatelets; Y92.099 Unspecified place in other non-institutional residence as the place of occurrence of the external cause; Z79.51 Long term (current) use of inhaled steroids; Z79.82 Long term (current) use of aspirin; Z79.1 Long term (current) use of non-steroidal anti-inflammatories (NSAID); Z87.81 Personal history of (healed) traumatic fracture; Z90.710 Acquired absence of both cervix and uterus; Z86.79 Personal history of other diseases of the circulatory system; Z86.59 Personal history of other mental and behavioral disorders; Z99.81 Dependence on supplemental oxygen; Z98.49 Cataract extraction status, unspecified eye; Z98.890 Other specified postprocedural states; Z79.899 Other long term (current) drug therapy
CPT/HCPCS: 36415; 70450; 71045; 80053; 80306; 80307; 81001; 83735; 84484; 85025; 93005; 96360; 99285; J7030; 36600; 70551; 70551-26; 80048; 80143; 80179; 82140; 82550; 82607; 82746; 82803; 84100; 84425; 84443; 93010; 94640; 94660; 94761; 97116-GP; 97161-GP; 97530-GP; A9270-GY; J1644; J1815-GY; J3475

== ENCOUNTER 2024-11-22 09:00 | Emergency (ER) | payer OTHER, MEDICAID ==
[2024-11-22] MEDS: Sodium Chloride 0.9% 1,000 ML IV SCH ×2 (09:11→10:08)
[2024-11-22] MEDS: Oxymetazoline 0.05% Nasal Spray 30 ML Bottle NAS ONE (09:13)
[2024-11-22] MEDS: Sodium Chloride 0.9% 10 ML Syringe FLUSH PRN (09:15)
[2024-11-22 09:19] LABS: BASOPHILS PERCENT AUTO 0.4 % (0.0-1.0); EOSINOPHILS ABSOLUTE AUTO 0.1 K/mm3 (0.0-0.4); EOSINOPHILS PERCENT AUTO 1.1 % (0.0-6.0); HEMATOCRIT 31.8 % (37.0-47.0); IMMATURE GRAN ABSOLUTE AUTO 0.04 K/mm3 (0.00-0.05); IMMATURE GRAN PERCENT AUTO 0.8 % (0.0-0.4); LYMPHOCYTES ABSOLUTE AUTO 1.8 K/mm3 (1.0-4.8); LYMPHOCYTES PERCENT AUTO 37.8 % (24.0-44.0); MEAN CORPUSCULAR HEMOGLOBIN 32.4 pg (28.0-32.0); MEAN CORPUSCULAR HGB CONC 33.6 g/dl (32.0-36.0); MEAN PLATELET VOLUME 9.2 fl (9.4-12.3); MONOCYTES ABSOLUTE AUTO 0.3 K/mm3 (0.0-0.8); MONOCYTES PERCENT AUTO 6.8 % (0.0-8.0); NEUTROPHILS ABSOLUTE AUTO 2.5 K/mm3 (1.8-7.7); NEUTROPHILS PERCENT AUTO 53.1 % (41.0-71.0); WHITE BLOOD CELL COUNT,WBC 4.73 K/mm3 (3.9-11.3)
[2024-11-22 09:22] LABS: HEMOGLOBIN 10.7 gm/dl (12.0-16.0); MEAN CORPUSCULAR VOLUME 96.4 fl (83.0-99.0); PLATELET COUNT,PLT 224 K/mm3 (150-400)
[2024-11-22 09:41] LABS: A/G RATIO 0.9 (1-2); ALBUMIN 3.6 g/dl (3.4-5.0); ANION GAP 10.2 (5-15); BILIRUBIN TOTAL 0.3 mg/dL (0.2-1.0); BUN/CREATININE RATIO 7.8 (14-18); CALCIUM 8.8 mg/dL (8.5-10.1); CREATININE 0.9 mg/dL (0.55-1.02); EST CRCL DRUG DOSING (CG) 52.04 mL/min; POTASSIUM,K 4.2 mEq/L (3.5-5.1); PROTEIN TOTAL,TP 7.5 g/dl (6.4-8.2)
[2024-11-22 09:47] LABS: INR 0.94
[2024-11-22 09:48] LABS: PTT,PARTIAL THROMBOPLSTIN TIME 23.6 SECONDS (21.7-31.4)
[2024-11-22] MEDS: LORazepam 2 MG/ML SDV IVPUSH ONE (09:57)
[2024-11-22] MEDS: Tranexamic Acid 1,000 MG/10 ML Vial IVPUSH ONE (10:02)
[2024-11-22] MEDS: Tranexamic Acid 1,000 MG/10 ML Vial NEB ONE (10:08)
== END 2024-11-22 12:35 | disposition home or self-care (01) ==
LOC: JD.ED 09:00
DX: R04.0 Epistaxis (principal); I10 Essential (primary) hypertension; E78.00 Pure hypercholesterolemia, unspecified; K21.9 Gastro-esophageal reflux disease without esophagitis; Z90.710 Acquired absence of both cervix and uterus; F17.200 Nicotine dependence, unspecified, uncomplicated; Z79.899 Other long term (current) drug therapy; Z88.5 Allergy status to narcotic agent
CPT/HCPCS: 30901; 36415; 80053; 85025; 85610; 85730; 94640; 96361; 96374; 96375; 99284; A9270; J2060; J7030

== ENCOUNTER 2024-11-26 16:04 | Emergency (ER) | payer MEDICAID ==
[2024-11-26 17:45] LABS: BASOPHILS PERCENT AUTO 0.2 % (0.0-1.0); EOSINOPHILS PERCENT AUTO 0.1 % (0.0-6.0); HEMATOCRIT 25.6 % (37.0-47.0); HEMOGLOBIN 8.8 gm/dl (12.0-16.0); IMMATURE GRAN ABSOLUTE AUTO 0.15 K/mm3 (0.00-0.05); IMMATURE GRAN PERCENT AUTO 1.6 % (0.0-0.4); LYMPHOCYTES ABSOLUTE AUTO 0.7 K/mm3 (1.0-4.8); LYMPHOCYTES PERCENT AUTO 7.5 % (24.0-44.0); MEAN CORPUSCULAR HEMOGLOBIN 32.2 pg (28.0-32.0); MEAN CORPUSCULAR HGB CONC 34.4 g/dl (32.0-36.0); MEAN CORPUSCULAR VOLUME 93.8 fl (83.0-99.0); MONOCYTES ABSOLUTE AUTO 0.8 K/mm3 (0.0-0.8); MONOCYTES PERCENT AUTO 8.6 % (0.0-8.0); NEUTROPHILS ABSOLUTE AUTO 7.9 K/mm3 (1.8-7.7); PLATELET COUNT,PLT 269 K/mm3 (150-400); RED BLOOD CELL COUNT 2.73 M/mm3 (4.10-5.30); WHITE BLOOD CELL COUNT,WBC 9.66 K/mm3 (3.9-11.3)
[2024-11-26] MEDS: Acetaminophen/HYDROcodone 325-5 MG Tab PO ONE (17:46)
[2024-11-26] MEDS: LORazepam 1 MG Tab PO ONE (17:46)
[2024-11-26 17:58] LABS: A/G RATIO 0.8 (1-2); ALBUMIN 3.3 g/dl (3.4-5.0); ANION GAP 12.2 (5-15); BILIRUBIN TOTAL 0.7 mg/dL (0.2-1.0); BUN/CREATININE RATIO 13.1 (14-18); CALCIUM 8.6 mg/dL (8.5-10.1); CREATININE 1.3 mg/dL (0.55-1.02); EST CRCL DRUG DOSING (CG) 36.03 mL/min; MAGNESIUM 1.7 mg/dL (1.8-2.4); POTASSIUM,K 4.2 mEq/L (3.5-5.1); PROTEIN TOTAL,TP 7.6 g/dl (6.4-8.2)
[2024-11-26] MEDS ORDERED: Sodium Chloride 0.9% 10 ML Syringe FLUSH PRN (18:29)
[2024-11-26] MEDS: Magnesium Oxide 400 MG Tab PO ONE (18:46)
[2024-11-26] MEDS: Sodium Chloride 0.9% 1,000 ML IV SCH (18:46)
[2024-11-26] MEDS: LORazepam 2 MG/ML SDV IVPUSH ONE (18:46)
[2024-11-26 20:14] LABS: LIPASE 28 U/L (16-77)
[2024-11-26 20:41] LABS: TROPONIN I HIGH SENSITIVITY < 4 pg/mL (<=51)
[2024-11-26] MEDS: Pantoprazole 40 MG Vial IVPUSH ONE (21:59)
[2024-11-26] MEDS: Pantoprazole 80 MG in Sodium Chloride 0.9% 100 ML IV ONE (21:59)
== END 2024-11-26 22:40 ==
LOC: JD.ED 16:04
DX: K92.1 Melena (principal); E87.1 Hypo-osmolality and hyponatremia; D64.9 Anemia, unspecified; N17.9 Acute kidney failure, unspecified; I10 Essential (primary) hypertension; E78.00 Pure hypercholesterolemia, unspecified; K21.9 Gastro-esophageal reflux disease without esophagitis; Z90.710 Acquired absence of both cervix and uterus; Z79.899 Other long term (current) drug therapy; Z88.5 Allergy status to narcotic agent
CPT/HCPCS: 36415; 74176; 80053; 83690; 83735; 84484; 85025; 86850; 86900; 86901; 93005; 96361; 96365; 96375; 99285; A9270; J2060; J2470; J7030; 93010

== ENCOUNTER 2024-12-04 22:39 | Emergency (ER) | payer MEDICAID ==
[2024-12-04] MEDS: hydrOXYzine HCl 25 MG Tab PO ONE (23:27)
[2024-12-05] MEDS: Albuterol/Ipratropium 3.0-0.5 MG/3 ML Neb Soln NEB ONE (02:36)
[2024-12-05] MEDS: Acetaminophen 325 MG Tab PO ONE (02:48)
[2024-12-05] MEDS: Amoxicillin 500 MG Cap PO ONE (02:48)
[2024-12-05] MEDS: hydrOXYzine HCl 25 MG Tab PO ONE (02:51)
== END 2024-12-05 08:19 | disposition home or self-care (01) ==
LOC: JD.ED 22:39
DX: J32.9 Chronic sinusitis, unspecified (principal); F41.9 Anxiety disorder, unspecified; I10 Essential (primary) hypertension; K21.9 Gastro-esophageal reflux disease without esophagitis; E78.00 Pure hypercholesterolemia, unspecified; E03.9 Hypothyroidism, unspecified; F17.200 Nicotine dependence, unspecified, uncomplicated; Z88.8 Allergy status to other drugs, medicaments and biological substances; Z79.890 Hormone replacement therapy; Z79.899 Other long term (current) drug therapy; Z90.710 Acquired absence of both cervix and uterus
CPT/HCPCS: 94640; 99283; A9270; J7620; 99284